=== PATIENT | male | born 1945 | race Caucasian/White ===

== ENCOUNTER 2024-09-13 18:33 | Inpatient (IN) | payer OTHER ==
[~2024-09-13] VITALS: Ht 172.7 cm; Wt 80.5 kg
[2024-09-13 19:11] LABS: BASOPHILS ABSOLUTE AUTO 0.03 K/mm3 (0.00-0.23); BASOPHILS PERCENT AUTO 0 % (0-2); EOSINOPHILS ABSOLUTE AUTO 0.22 K/mm3 (0.00-0.68); EOSINOPHILS PERCENT AUTO 3 % (0-6); Hematocrit 42.2 % (37.0-53.0); Hemoglobin 13.5 g/dL (13.5-17.5); IMMATURE GRAN ABSOLUTE AUTO 0.02 K/mm3 (0.00-0.10); IMMATURE GRAN PERCENT AUTO 0 % (0-1); LYMPHOCYTES ABSOLUTE AUTO 0.84 K/mm3 (0.84-5.20); LYMPHOCYTES PERCENT AUTO 12 % (21-46); MONOCYTES ABSOLUTE AUTO 0.58 K/mm3 (0.16-1.47); MONOCYTES PERCENT AUTO 8 % (4-13); Mean Corpuscular HGB 30.1 pg (26.0-34.0); Mean Corpuscular Volume 94 fL (80-100); NEUTROPHILS ABSOLUTE AUTO 5.35 K/mm3 (1.96-9.15); NEUTROPHILS PERCENT AUTO 76 % (41-73); Platelet Count 120 K/mm3 (150-400); RDW Coefficient Variation 16.3 % (11.7-14.2); Red Blood Cell Count 4.49 M/mm3 (4.30-5.90); White Blood Cell Count 7.04 K/mm3 (4.00-11.30)
[2024-09-13] MEDS ORDERED: ELIQUIS5 M2 PO ×2 (19:11)
[2024-09-13] MEDS ORDERED: ALLO300 PO ×2 (19:11)
[2024-09-13] MEDS ORDERED: ATOR80 PO ×2 (19:11)
[2024-09-13] MEDS ORDERED: Calcium Carbon500 MG PO ×2 (19:12)
[2024-09-13] MEDS ORDERED: VITAMIN D350 MC3 PO ×2 (19:12)
[2024-09-13] MEDS ORDERED: JARDIANCE25 MG PO ×2 (19:13)
[2024-09-13] MEDS ORDERED: DULO60 PO ×2 (19:13)
[2024-09-13] MEDS ORDERED: DULO30 PO ×2 (19:13)
[2024-09-13] MEDS ORDERED: ERGO50000 PO ×2 (19:14)
[2024-09-13] MEDS ORDERED: METF500C PO ×2 (19:14)
[2024-09-13] MEDS ORDERED: MIRT15 PO ×2 (19:14)
[2024-09-13] MEDS ORDERED: TOPROL XL50 M1 PO ×2 (19:14)
[2024-09-13] MEDS ORDERED: OMEP20ER PO ×2 (19:15)
[2024-09-13] MEDS ORDERED: NICODERM CQ1 EA24 TD ×2 (19:15)
[2024-09-13] MEDS ORDERED: POTCHL20ER PO ×2 (19:15)
[2024-09-13] MEDS ORDERED: PREG150 PO ×2 (19:15)
[2024-09-13] MEDS ORDERED: ENTRESTO 24 MG1 EACH PO (19:16)
[2024-09-13] MEDS ORDERED: TAMS.4ER PO ×2 (19:16)
[2024-09-13] MEDS ORDERED: TORSE20 PO ×2 (19:17)
[2024-09-13 19:20] LABS: Base Excess Venous -0.8 mmol/L; Bicarbonate Venous 23.7 mmol/L (24.0-30.0); PCO2 Venous 38.8 mmHg (38-42)
[2024-09-13 19:31] LABS: CORONAVIRUS COVID-19 AG Negative (NEGATIVE); INFLUENZA A AG Negative (NEGATIVE); INFLUENZA B AG Negative (NEGATIVE)
[2024-09-13 19:33] LABS: Albumin, Blood 2.8 g/dL (3.4-5.0); Albumin/Globulin Ratio 0.8 (0.8-1.8); Bilirubin, Total 0.5 mg/dL (0.1-1.0); Calcium, Blood 8.2 mg/dL (8.5-10.1); Creatinine, Blood 1.09 mg/dL (0.60-1.20); Globulin, Blood 3.6 g/dL (2.2-4.0); Potassium, Blood 4.6 mmol/L (3.5-5.5); Total Protein, Blood 6.4 g/dL (6.4-8.2)
[2024-09-13] MEDS ORDERED: Furosemide 10 MG/ML 10ML Vial IV ONE (19:55)
[2024-09-13] MEDS ORDERED: FLU VACC TS2024-25(6MOS UP)/PF 45 MCG/0.5 ML SYRINGE IM ONE (21:50)
[2024-09-13] MEDS ORDERED: Insulin Glargine-Yfgn 100 Unit/mL 3 ML SYR SC SCH (23:00)
[2024-09-13] MEDS ORDERED: Midodrine 5 MG Tab PO SCH (23:00)
[2024-09-14] VITALS (21 sets, daily range): BP systolic 81–142; BP diastolic 53–98
[2024-09-14 04:04] LABS: BASOPHILS ABSOLUTE AUTO 0.02 K/mm3 (0.00-0.23); BASOPHILS PERCENT AUTO 1 % (0-2); EOSINOPHILS ABSOLUTE AUTO 0.18 K/mm3 (0.00-0.68); EOSINOPHILS PERCENT AUTO 5 % (0-6); Hematocrit 38.7 % (37.0-53.0); Hemoglobin 12.3 g/dL (13.5-17.5); IMMATURE GRAN ABSOLUTE AUTO 0.01 K/mm3 (0.00-0.10); IMMATURE GRAN PERCENT AUTO 0 % (0-1); LYMPHOCYTES ABSOLUTE AUTO 0.87 K/mm3 (0.84-5.20); LYMPHOCYTES PERCENT AUTO 22 % (21-46); MONOCYTES PERCENT AUTO 12 % (4-13); Mean Corpuscular HGB 29.8 pg (26.0-34.0); Mean Corpuscular HGB Conc 31.8 g/dL (31.5-36.5); Mean Corpuscular Volume 94 fL (80-100); NEUTROPHILS ABSOLUTE AUTO 2.46 K/mm3 (1.96-9.15); NEUTROPHILS PERCENT AUTO 61 % (41-73); Platelet Count 99 K/mm3 (150-400); RDW Coefficient Variation 16.3 % (11.7-14.2); RDW Standard Deviation 56.7 fL (35.1-46.3); Red Blood Cell Count 4.13 M/mm3 (4.30-5.90); White Blood Cell Count 4.04 K/mm3 (4.00-11.30)
[2024-09-14 04:09] LABS: Mean Platelet Volume 13.3 fL (9.1-12.4)
[2024-09-14 04:23] LABS: Albumin, Blood 2.5 g/dL (3.4-5.0); Albumin/Globulin Ratio 0.8 (0.8-1.8); Bilirubin, Total 0.5 mg/dL (0.1-1.0); Bun/Creatinine Ratio 42.7 (12.0-20.0); Calcium, Blood 7.9 mg/dL (8.5-10.1); Creatinine, Blood 1.17 mg/dL (0.60-1.20); Globulin, Blood 3.2 g/dL (2.2-4.0); Potassium, Blood 3.5 mmol/L (3.5-5.5); Total Protein, Blood 5.7 g/dL (6.4-8.2)
[2024-09-14] MEDS ORDERED: Omeprazole 20 MG CapCR PO SCH (06:00)
--- NOTE | 2024-09-14 06:37 | NUR ---
PT ARRIVED FROM ED BY STRETCHER. TRANSFERED TO BED WITH SLIDE SHEET. PT AOX4, COOPERATIVE, ABLE TO ANSWER ALL QUESTIONS. PT IS IVSL AND ON 2L NC. PT ON ROOM AIR AT BASELINE. NO C/O CP OR DYSPNEA AT THIS TIME. PT HEART RHYTHM/RATE IS AFIB CONTROLLED VENTRICULAR RATE. VITAL SIGNS STABLE, BP SLIGHTLY SOFT 90s/60s. PT ASYMPTOMATIC WITH LOWERED BP. PUREWICK IN PLACE PT DIURESING WELL THROUGHOUT THE SHIFT. CALL LIGHT AND BEDSIDE TABLE IN REACH, BED IN LOWEST POSITION WITH BRAKES ON.
[2024-09-14] MEDS ORDERED: Insulin Human Lispro 100 Units/ML 3ML Syringe SC SCH (07:30)
[2024-09-14] MEDS ORDERED: Allopurinol 100 MG Tab PO SCH (09:00)
[2024-09-14] MEDS ORDERED: DULoxetine HCL 60 MG Capsule DR PO SCH (09:00)
[2024-09-14] MEDS ORDERED: Atorvastatin 40 MG Tab PO SCH (09:00)
[2024-09-14] MEDS ORDERED: Nicotine 7 MG PATCH TOP SCH (09:00)
[2024-09-14] MEDS ORDERED: Potassium Chloride 20 MEQ TabCR PO SCH ×3 (09:00→15:00)
[2024-09-14] MEDS ORDERED: Empagliflozin 25 MG TAB PO SCH (09:00)
[2024-09-14] MEDS ORDERED: Furosemide 10 MG/ML 4ML Vial IV SCH (09:00)
[2024-09-14] MEDS ORDERED: Pregabalin 75 MG Cap PO SCH (09:00)
[2024-09-14] MEDS ORDERED: Sacubitril/Valsartan 97 mg-103 mg Tab PO SCH (09:00)
[2024-09-14] MEDS ORDERED: Apixaban 5 MG Tab PO SCH ×2 (09:00→21:00)
[2024-09-14] MEDS ORDERED: Tamsulosin HCl 0.4 MG Cap PO SCH (09:00)
[2024-09-14] MEDS ORDERED: Calcium Carbonate 500 MG Tab Chew PO SCH (09:00)
[2024-09-14] MEDS ORDERED: Potassium Chloride 40 MEQ in NS 250 ML IV ONE (11:25)
[2024-09-14 12:24] LABS: Magnesium, Blood 1.9 mg/dL (1.6-2.4)
[2024-09-14 12:31] LABS: Phosphorus, Blood 3.1 mg/dL (2.5-4.9); Thyroid Stimulating Hormone 2.02 uIU/mL (0.360-4.800)
[2024-09-14] MEDS ORDERED: NS 250 ML IV PRN (13:10)
--- NOTE | 2024-09-14 16:48 | NUR ---
SHIFT SUMMARY THE PT IS A&OX4, BUT CAN BE IRRITABLE AT TIMES. 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 ON TELE HE IS AFIB 70'S-100'S. BP SOFT AND IS ON MIDODRINE TO HELP. HOSP TEAM AND CARDIOLOGY AWARE. HE WAS TITRAITED TO RA AND SP02 >93%. HE WAS PLACED ON 1L NC D/T SOB WITH ACTIVITY. THE PT STATES "I HATE FEELING THIS WAY" "I HATE FEELING SICK". SYMPTOMS WORSE AFTER ANY ACITIVTY. HE HAS A MALE PURIWCK INTACT W/ ADEQUET YELLOW OUTPUT. BOWEL MOVEMENT THIS SHIFT. CARDIOLOGY CONSULTED AFTER ECHO RESULTS. A FEW HOURS AFTER SPEAKING WITH CARDIOLOGY, THE PT STATED HE WOULD LIKE A SECOND AND THIRD OPINION OF HIS HEART FROM HIS CERTIFIED ACTIVITIES DIRECTOR AT THE [facility] IN [place]. THE PT STATES HE IS GOING TO [place] AT THE END OF THE MONTH AND WHEN HE IS UP THERE HE WILL CALL HIS CERTIFIED ACTIVITIES DIRECTOR TO MAKE AND APT. THIS RN DISCUSSED THE RISK OF WAITING TO SEE THE CERTIFIED ACTIVITIES DIRECTOR AND THE PT REPLIED WITH "I NEED YOU TO UNDERSTAND, IF I , I DO NOT CARE". THIS WAS DISCUSSED WITH HOSP TEAM, [employer], AND PALLIATIVE CARE.
[2024-09-14] MEDS ORDERED: Potassium Chloride 20 MEQ TabCR PO ONE (18:00)
[2024-09-14] MEDS ORDERED: Metoclopramide HCl 5MG / ML 2ML Vial IV PRN (20:50)
[2024-09-14] MEDS ORDERED: Mirtazapine 15 MG Tab PO SCH (21:00)
[2024-09-14] MEDS ORDERED: Mag Sulfate 1 GM/D5% 100ML 100 ML IV STA (21:57)
[2024-09-14] MEDS ORDERED: Metoprolol Tartrate 5 ML IV ONE (21:59)
[2024-09-14] MEDS ORDERED: Metoprolol Tartrate 1 MG/ML 5 ML VIAL IV ONE (22:05)
--- NOTE | 2024-09-14 22:50 | NUR ---
UPDATE PT'S HR NOTED TO BE RANGING 110-130'S AT SHIFT CHANGE. ABOUT 2129, HR INCREASED TO THE 130-150'S. DR. NINO NOTIFIED WITH MD TO PUT IN ORDERS. ABOUT 20 MINUTES LATER HR NOTED TO BE RANGING 150-170'S WITH INTERMITTENT JUMPS INTO THE 180'S. DR. BOGGS NOTIFIED WITH ORDERS TO GIVE 2.5MG LOPRESSOR IV, 1GRAM OF MAG, AND TO START AMIO BOLUS AND THEN AMIO gtt. IV LOPRESSOR PUSH GIVEN WITH MINMAL EFFECT ON HR WHILE WAITNG FOR AMIO gtt FROM PHARMACY. SBP DECREASED TO 80'S WITH HR RANGING 160-170'S WITH AN INTERMITTENT JUMP TO 200'S. PT ENDORSED INCREASED SOB WELL FEELING OF HIS HEART RACING. AMIO BOLUS AND gtt ARRIVED AND WAS IMMEDIATELY STARTED. PT RESONDED WELL TO BOLUS AND gtt WITH HR DECREASING TO 110-130'S. SBP ALSO INCREASED TO 100-110'S. PT ENDORSES IMPROVEMENT TO SOB WELL OVERALL MALASIE. DR. BOGGS AND DR. NINO UPDATED ON PT WITH ADDITIONAL ORDERS FOR ANOTHER AMIO BOLUS AND TO RESUME gtt AFTER IF HR MAINTAINS >130'S AND OR BP DROPS AGAIN. DR. ROBISON UPDATED ON PT'S CHANGE OF CONDITION WITH DIRECTIONS TO CONTINUE WITH CURRENT PLAN OF CARE.
[2024-09-14] MEDS ORDERED: LORazepam 0.5 MG Tab PO PRN (23:45)
[2024-09-15] VITALS (35 sets, daily range): BP systolic 81–123; BP diastolic 58–89
[2024-09-15 05:27] LABS: CHOL/HDL RATIO 1.9; Cholesterol 74 mg/dL (50-200); HDL Cholesterol 38 mg/dL (>39); LDL/HDL RATIO 0.5; Low Density Lipoprotein Chol 21 mg/dL (0-110); Triglycerides 77 mg/dL (30-160); Very Low Density Lipoprot Chol 15 mg/dL (6-32)
[2024-09-15 06:54] LABS: BASOPHILS ABSOLUTE AUTO 0.04 K/mm3 (0.00-0.23); BASOPHILS PERCENT AUTO 1 % (0-2); EOSINOPHILS ABSOLUTE AUTO 0.08 K/mm3 (0.00-0.68); EOSINOPHILS PERCENT AUTO 1 % (0-6); Hematocrit 48.6 % (37.0-53.0); Hemoglobin 14.7 g/dL (13.5-17.5); IMMATURE GRAN ABSOLUTE AUTO 0.03 K/mm3 (0.00-0.10); IMMATURE GRAN PERCENT AUTO 0 % (0-1); LYMPHOCYTES ABSOLUTE AUTO 1.07 K/mm3 (0.84-5.20); LYMPHOCYTES PERCENT AUTO 14 % (21-46); MONOCYTES ABSOLUTE AUTO 0.86 K/mm3 (0.16-1.47); MONOCYTES PERCENT AUTO 11 % (4-13); Mean Corpuscular HGB Conc 30.2 g/dL (31.5-36.5); Mean Platelet Volume 12.8 fL (9.1-12.4); NEUTROPHILS ABSOLUTE AUTO 5.55 K/mm3 (1.96-9.15); NEUTROPHILS PERCENT AUTO 73 % (41-73); Platelet Count 134 K/mm3 (150-400); RDW Coefficient Variation 16.7 % (11.7-14.2); RDW Standard Deviation 61.3 fL (35.1-46.3); White Blood Cell Count 7.63 K/mm3 (4.00-11.30)
[2024-09-15] MEDS ORDERED: Amiodarone HCl 200 MG Tab PO SCH (07:00)
[2024-09-15 07:01] LABS: Mean Corpuscular Volume 99 fL (80-100)
--- NOTE | 2024-09-15 07:19 | NUR ---
PT HAD EVENTFUL SHIFT LAST NIGHT. PT STARTED SHIFT AFIB WITH RATE 100-110s NO C/O DYSPNEA OR CP. PT HAD EPISODE OF NAUESEA WITH EMESIS WHICH APPEARED TO BE MUCUS PT WAS SWALLOWING FROM COUGH. PT WAS MEDICATED WITH 10MG REGLAN IVX1 WITH GOOD RESULTS. PT HAVING SOFT BP BUT DID IMPROVE TOWARD THE END OF SHIFT. PT HEART RATE TRENDED UPWARDS TO REACH 180s REMAINING IN AFIB, PHYSICIANS NOTIFIED AND PT MEDICATED WITH METOPROLOL IV 2.5MG X1 WITH NO SIGNIFICANT EFFECT ON HR/RHYTHM BUT DID DECREASE BP, PT HAVING SOFT BP AT BEGINNING OF SHIFT. PT THEN STARTED ON AMIODARONE WITH 150MG BOLUS X1 GIVEN THEN STARTED ON STANDARD AMIODARONE INFUSION. HR/RHYTHM STILL REMAINED AFIB SUSTAINED 130s AND PT WAS GIVEN 150MG BOLUS X1 FOR TOTAL OF [id number] BOLUS. LAST BOLUS IMPROVED HR SIGNIFICANTLY AND PT DECREASED BACK TO 110-120s. PT DID RECEIVE ATIVAN 0.5MG PO X1 FOR ANXIETY WHICH DID NOT APPEAR TO HELP HEART RATE. FACIAL DROOP TO RIGHT SIDE APPEARED TO THIS RN TO WORSEN AND PHYSICIAN NOTIFIED, OTHER MOTOR ASSESSMENT REMAINED UNCHANGED FROM PREVIOUS. PT REPORTS RT DROOP AT BASELINE WHEN PHYSICIAN EXAMINED PT. PT MITTEN STITCHER EQUAL BUT WEAK, B/L LEGS EQUAL BUT WEAK, EYES PERRLA. PT ABLE TO ANSWER ORIENTATION QUESTIONS APPROPRIATELY BUT DOES APPEAR TO HAVE SLIGHT SLURRING TO WORDS. PUREWICK IN PLACE AND CONTINUES TO DRAIN WELL. LUNG SOUNDS REMAIN UNCHANGED IF NOT IMPROVED THROUGHOUT SHIFT, THOUGH PT CONTINUED TO STATE DYSPNEA THOUGH SPO2 REMAINED 95% OR GREATER ON 2-4L NC. PT WAS INCREASED FROM 2L TO 4L DURING TACHYCARDIC EPISODE. OXY MASK PLACED ON 4L AND PT REPORTS IMPROVED BREATHING. AMIODARONE INFUSION D/C'D THIS MORNING WHEN PO AMIODARONE GIVEN.
[2024-09-15 07:25] LABS: Albumin, Blood 2.7 g/dL (3.4-5.0); Albumin/Globulin Ratio 0.7 (0.8-1.8); Bilirubin, Total 0.7 mg/dL (0.1-1.0); Bun/Creatinine Ratio 34.2 (12.0-20.0); Calcium, Blood 8.1 mg/dL (8.5-10.1); Creatinine, Blood 1.46 mg/dL (0.60-1.20); Globulin, Blood 3.8 g/dL (2.2-4.0); Total Protein, Blood 6.5 g/dL (6.4-8.2)
[2024-09-15] MEDS ORDERED: Insulin Regular 100 UNIT/ML 10ML Vial IV ONE ×2 (07:55→10:15)
[2024-09-15] MEDS ORDERED: CALCIUM GLUC IN NACL, ISO-OSM 50 ML IV ONE (09:00)
[2024-09-15 09:34] LABS: Base Excess Venous -3.1 mmol/L; Bicarbonate Venous 21.8 mmol/L (24.0-30.0); pH Blood Venous 7.34 (7.34-7.37)
--- NOTE | 2024-09-15 10:04 | NUR ---
CARE NOTE A CALL WAS PLACED TO DR. STEWART BY THIS RN AT APPROX. 1004 REGARDING BLOOD GLUCOSE OF 445.
[2024-09-15 13:39] LABS: Albumin, Blood 2.7 g/dL (3.4-5.0); Albumin/Globulin Ratio 0.8 (0.8-1.8); Bilirubin, Total 0.5 mg/dL (0.1-1.0); Bun/Creatinine Ratio 35.1 (12.0-20.0); Calcium, Blood 8.3 mg/dL (8.5-10.1); Creatinine, Blood 1.54 mg/dL (0.60-1.20); Globulin, Blood 3.4 g/dL (2.2-4.0); Potassium, Blood 4.5 mmol/L (3.5-5.5); Total Protein, Blood 6.1 g/dL (6.4-8.2)
[2024-09-15] MEDS ORDERED: Digoxin 0.25 MG/ML 2ML Amp IV ONE (15:00)
[2024-09-15] MEDS ORDERED: Insulin Human Lispro 100 Units/ML 3ML Syringe SC SCH (16:30)
--- NOTE | 2024-09-15 17:26 | NUR ---
SHIFT SUMMARY PT IS ORIENTED X 4. HE WAS SOMNOLENT UNITL APPROX. 1500 BUT IS MORE ALERT NOW. PER PT REPORT HE DID NOT EXPERIENCE SLEEP LAST NIGHT THEREFORE STAFF ALLOWED PT TO HAVE PERIODS OF UNINTERRUPTED REST. BP STABLE W/ MAP OF 60-70'S, HR HAS BEEN AFIB 80-90'S PER TELE REPORT. SPO2 HAS BEEN MAINTAINED 95% VIA 2-4L NC. HE HAS DENIED FEELINGS OF CHEST PAIN/PRESSURE WELL FEELINGS OF NAUSEA/VOMITTING. IN BEGINNING OF SHIFT, PT REPORTED FEELING DYSPNEIC BUT THAT APPEARS MUCH IMPROVED. OCCASSIONAL NON-PRODUCTIVE COUGH NOTED. PT HAS BEEN BEDREST DURING SHIFT BUT REPORTS USING A WALKER AT BASELINE, HE DECLINED GETTING UP TO CHAIR W/ ASSISTANCE DURING SHIFT. HE HAS HAD VERY LITTLE PO INTAKE DURING SHIFT. PW DEVICE IS IN PLACE FOR URINARY OUTPUT. THIS RN PLACED MEPILEX DRESSING OVER COCCYX WELL BILATERAL HEEL PROTECTORS DURING SHIFT. CALL LIGHT IS W/IN REACH.
[2024-09-15] MEDS ORDERED: Insulin Glargine-Yfgn 100 Unit/mL 3 ML SYR SC SCH (21:00)
[2024-09-16] VITALS (9 sets, daily range): BP systolic 92–109; BP diastolic 50–62
[2024-09-16 04:42] LABS: Bun/Creatinine Ratio 37.7 (12.0-20.0); Calcium, Blood 8.2 mg/dL (8.5-10.1); Creatinine, Blood 1.3 mg/dL (0.60-1.20)
--- NOTE | 2024-09-16 06:26 | NUR ---
PT STABLE THROUGHOUT THE SHIFT. PT REPORTS FEELING "MUCH BETTER THAN LAST NIGHT." PT REMAINS IN AFIB WITH CONTROLLED VENTRICULAR RATE, BP OCCASIONALLY SOFT THOUGH IMPROVED WITH BP WNL PRESENT WELL. PT DID SLEEP FOR ALMOST THE ENTIRETY OF SHIFT BUT DID AWAKE EASILY AND REMAINED AOX4. PT WAS ABLE TO SWALLOW PILLS WHOLE WITH WATER W/O S/S ASPIRATION/CHOKING. PUREWICK IN PLACE AND PT DID HAVE GOOD URINARY OUTPUT. FULL LINEN CHANGE DONE D/T LEAKING PUREWICK. PT REPOSITIONED FREQUENTLY, REDNESS TO COCCYX REMAINS BLANCHABLE AND HEELS FLOATED WITH HEEL PADS ON B/L. PT ON 2L O2 WITH GOOD SPO2, NO C/O DYSPNEA OR CP. PT DID NOT HAVE A BM ON THIS SHIFT. CALL LIGHT AND BEDSIDE TABLE IN REACH, PT USES CALL LIGHT APPROPRIATELY WHEN AWAKE. BED IN LOWEST POSITION, BRAKES ON, UPPER SIDE RAILS UP FOR SAFETY.
[2024-09-16] MEDS ORDERED: Amiodarone HCl200 MG PO ×4 (11:51→11:52)
[2024-09-16] MEDS ORDERED: AMIODARONE HCL200 M1 PO ×2 (11:54)
[2024-09-16] MEDS ORDERED: MIDO5 PO ×2 (11:58)
[2024-09-16] MEDS ORDERED: Amiodarone HCl 200 MG Tab PO SCH (14:00)
--- NOTE | 2024-09-16 14:32 | NUR ---
DISCHARGE SUMMARY PT A&Ox3-4, CALLS AND COMMUNCIATES NEEDS APPROPRIATELY. BP STABLE, AFIB 70's, DENIES CP/PRESSURE. SpO2> 92% 1L VIA NC, DESATS TO 88% ON RA, DENIES SOB. DISCHARGE INSTRUCTIONS PROVIDED TO PT, IVS REMOVED. PT 1 ASSIST TO STAND AND TRANSFER TO WHEELCHAIR. PT TAKEN OUT BY TRANSPORTATION STAFF WITH ALL PT BELONINGS AT APPROXIMATELY 1430.
[2024-09-17] MEDS ORDERED: Amiodarone HCl 200 MG Tab PO SCH (09:00)
== END 2024-09-16 14:30 | DRG 291 ==
LOC: ER 18:33 → PCU 23:01
PROVIDERS: Family Medicine; Student in an Organized Health Care Education/Training Program; ADMIT Student in an Organized Health Care Education/Training Program
PROC: 3E033XZ Introduction of Vasopressor into Peripheral Vein, Percutaneous Approach (ICD-10-PCS; principal; 2024-09-13)
DX: I11.0 Hypertensive heart disease with heart failure (principal); I50.23 Acute on chronic systolic (congestive) heart failure; J96.01 Acute respiratory failure with hypoxia; N17.9 Acute kidney failure, unspecified; I48.91 Unspecified atrial fibrillation; E11.9 Type 2 diabetes mellitus without complications; Z66 Do not resuscitate; F17.210 Nicotine dependence, cigarettes, uncomplicated; F10.10 Alcohol abuse, uncomplicated; M10.9 Gout, unspecified; I95.9 Hypotension, unspecified; R29.810 Facial weakness; E87.5 Hyperkalemia; I42.9 Cardiomyopathy, unspecified; I35.0 Nonrheumatic aortic (valve) stenosis; Z86.73 Personal history of transient ischemic attack (TIA), and cerebral infarction without residual deficits; Z98.890 Other specified postprocedural states; Z79.899 Other long term (current) drug therapy; Z79.01 Long term (current) use of anticoagulants; Z79.84 Long term (current) use of oral hypoglycemic drugs; Z28.21 Immunization not carried out because of patient refusal
CPT/HCPCS: 36415; 71045; 80048; 80053; 80061; 82803; 82947; 83036; 83735; 83880; 84100; 84443; 84484; 85025; 87428-QW; 93005; 93010; 94762; 96374; 99285-25; A9270; C8929; J0282; J0612; J1160; J1815; J1940; J2765; J3475; J3480; J7050; J7060; Q9957

== ENCOUNTER 2024-09-21 11:00 | Observation (INO) | payer OTHER ==
[~2024-09-21] VITALS: Ht 172.7 cm; Wt 72.9 kg
[~2024-09-21 11:00] MED LIST: ALLO300 PO; AMIODARONE HCL200 M1 PO; ATOR80 PO; Amiodarone HCl200 MG PO; Calcium Carbon500 MG PO; DULO30 PO; DULO60 PO; ELIQUIS5 M2 PO; ENTRESTO 24 MG1 EACH PO; ERGO50000 PO; JARDIANCE25 MG PO; METF500C PO; MIDO5 PO; MIRT15 PO; NICODERM CQ1 EA24 TD; OMEP20ER PO; POTCHL20ER PO; PREG150 PO; TAMS.4ER PO; TOPROL XL50 M1 PO; TORSE20 PO; VITAMIN D350 MC3 PO
[2024-09-21 12:09] LABS: BASOPHILS ABSOLUTE AUTO 0.03 K/mm3 (0.00-0.23); BASOPHILS PERCENT AUTO 1 % (0-2); EOSINOPHILS ABSOLUTE AUTO 0.36 K/mm3 (0.00-0.68); EOSINOPHILS PERCENT AUTO 6 % (0-6); Hematocrit 41.9 % (37.0-53.0); Hemoglobin 13.2 g/dL (13.5-17.5); IMMATURE GRAN ABSOLUTE AUTO 0.02 K/mm3 (0.00-0.10); IMMATURE GRAN PERCENT AUTO 0 % (0-1); LYMPHOCYTES PERCENT AUTO 10 % (21-46); MONOCYTES ABSOLUTE AUTO 0.53 K/mm3 (0.16-1.47); MONOCYTES PERCENT AUTO 9 % (4-13); Mean Corpuscular HGB 29.2 pg (26.0-34.0); Mean Corpuscular HGB Conc 31.5 g/dL (31.5-36.5); Mean Corpuscular Volume 93 fL (80-100); Mean Platelet Volume 12.4 fL (9.1-12.4); NEUTROPHILS ABSOLUTE AUTO 4.64 K/mm3 (1.96-9.15); NEUTROPHILS PERCENT AUTO 75 % (41-73); Platelet Count 128 K/mm3 (150-400); RDW Standard Deviation 54.5 fL (35.1-46.3); Red Blood Cell Count 4.52 M/mm3 (4.30-5.90); White Blood Cell Count 6.18 K/mm3 (4.00-11.30)
[2024-09-21 12:35] LABS: Albumin, Blood 2.4 g/dL (3.4-5.0); Albumin/Globulin Ratio 0.6 (0.8-1.8); Bilirubin, Total 0.5 mg/dL (0.1-1.0); Bun/Creatinine Ratio 29.8 (12.0-20.0); Calcium, Blood 8.3 mg/dL (8.5-10.1); Creatinine, Blood 1.21 mg/dL (0.60-1.20); Globulin, Blood 3.7 g/dL (2.2-4.0); Potassium, Blood 4.7 mmol/L (3.5-5.5); Total Protein, Blood 6.1 g/dL (6.4-8.2)
[2024-09-21] MEDS ORDERED: FLU VACC TS2024-25(6MOS UP)/PF 45 MCG/0.5 ML SYRINGE IM SCH (14:45)
[2024-09-21 18:00] VITALS: BP 122/66
[2024-09-21] MEDS ORDERED: Midodrine 5 MG Tab PO SCH (18:00)
--- NOTE | 2024-09-21 18:00 | NUR ---
ADMIT: Patient arrived to PCU 15 via bed and was able to stand and transfer to the bed, he is weak and slow. He is alert and oriented x4. Denies pain at this time. He states he had a syncopal episode at the [facility] when he was turning in bed thus they sent him to the hospital. HR Irreg, he is in A-Fib in the 90s, blood pressure stable. LS DIM with some fine crackles noted, he is 88% on RA, he bumped up to 94% on 2L via NC. BT+, abd slightly distended he states he had a BM yesterday. He has a scab to his left knee and some purplish discoloration to his coccyx, this is blanchable. He also has an open area to his right buttock-mepilex placed and patient repositioned to his left side. He had a condom cath in place that was falling off when he arrived, this was removed and male purewick was palced. Medication Reconcilitaion complete. Patient denies other needs at this time. Call light in reach.
[2024-09-21 20:24] VITALS: BP 101/70
[2024-09-21] MEDS ORDERED: Sacubitril/Valsartan 49 MG/51 MG Tab PO SCH (21:00)
[2024-09-21] MEDS ORDERED: Calcium Carbonate 500 MG Tab Chew PO SCH (21:00)
[2024-09-21] MEDS ORDERED: N-Acetylcysteine 600 MG CAP PO SCH (21:00)
[2024-09-21] MEDS ORDERED: Mirtazapine 15 MG Tab PO SCH (21:00)
[2024-09-21] MEDS ORDERED: Pregabalin 75 MG Cap PO SCH (21:00)
[2024-09-21] MEDS ORDERED: Apixaban 5 MG Tab PO SCH (21:00)
--- NOTE | 2024-09-21 23:02 | NUR ---
ASSUMED CARE PT IS A&O X4; SPO2 >92% ON 2LNC; MAP >65. PT DENIES CP, SOB, AND NAUSEA AT THIS TIME. RESTING QUIETLY.
--- NOTE | 2024-09-22 00:56 | NUR ---
WOUND REDNESS/PURPLE ON COCCYX W/ OPEN AREA IN GLUTEAL FOLD. PICTURES TAKEN AND DR DE LA ROSA NOTIFIED.
[2024-09-22 04:25] VITALS: BP 103/65
[2024-09-22 05:06] LABS: Hematocrit 41.4 % (37.0-53.0); Mean Corpuscular HGB 28.9 pg (26.0-34.0); Mean Corpuscular HGB Conc 31.4 g/dL (31.5-36.5); Mean Corpuscular Volume 92 fL (80-100); Mean Platelet Volume 12.4 fL (9.1-12.4); Platelet Count 137 K/mm3 (150-400); RDW Standard Deviation 54.8 fL (35.1-46.3); White Blood Cell Count 5.64 K/mm3 (4.00-11.30)
[2024-09-22 05:51] LABS: Albumin, Blood 2.4 g/dL (3.4-5.0); Albumin/Globulin Ratio 0.7 (0.8-1.8); Bilirubin, Total 0.7 mg/dL (0.1-1.0); Bun/Creatinine Ratio 29.5 (12.0-20.0); Calcium, Blood 8.2 mg/dL (8.5-10.1); Creatinine, Blood 1.22 mg/dL (0.60-1.20); Globulin, Blood 3.5 g/dL (2.2-4.0); Magnesium, Blood 1.8 mg/dL (1.6-2.4); Phosphorus, Blood 2.8 mg/dL (2.5-4.9); Potassium, Blood 4.1 mmol/L (3.5-5.5); Total Protein, Blood 5.9 g/dL (6.4-8.2)
[2024-09-22] MEDS ORDERED: Omeprazole 20 MG CapCR PO SCH (06:00)
--- NOTE | 2024-09-22 06:51 | NUR ---
SHIFT SUMMARY NO ACUTE EVENTS OVERNIGHT. PT SLEPT T/O NIGHT..
[2024-09-22] MEDS ORDERED: Insulin Human Lispro 100 Units/ML 3ML Syringe SC SCH (07:30)
[2024-09-22] MEDS ORDERED: Magnesium Sulf 2 GM/Water 50ML 50 ML IV ONE (07:45)
[2024-09-22] MEDS ORDERED: DULoxetine HCL 30 MG Cap DR PO SCH (09:00)
[2024-09-22] MEDS ORDERED: Atorvastatin 40 MG Tab PO SCH (09:00)
[2024-09-22] MEDS ORDERED: DULoxetine HCL 60 MG Capsule DR PO SCH (09:00)
[2024-09-22] MEDS ORDERED: Allopurinol 100 MG Tab PO SCH (09:00)
[2024-09-22] MEDS ORDERED: Amiodarone HCl 200 MG Tab PO SCH (09:00)
[2024-09-22] MEDS ORDERED: Bumetanide 1 MG Tab PO SCH (09:00)
[2024-09-22] MEDS ORDERED: Tamsulosin HCl 0.4 MG Cap PO SCH (09:00)
[2024-09-22] MEDS ORDERED: Potassium Chloride 10 Meq Tablet SA PO SCH (09:00)
[2024-09-22] MEDS ORDERED: Enoxaparin 40 MG/0.4 ML SYR SC SCH (09:00)
[2024-09-22] MEDS ORDERED: Metoprolol Succinate 25 MG TABCR PO SCH (09:00)
[2024-09-22] MEDS ORDERED: Ergocalciferol 50000 Intn'l Units PO SCH (09:00)
[2024-09-22] MEDS ORDERED: Cholecalciferol 1000 Unit Tablet (=25MCG) PO SCH (09:00)
[2024-09-22] MEDS ORDERED: Empagliflozin 10 MG TAB PO SCH (09:00)
[2024-09-22] MEDS ORDERED: Nicotine 7 MG PATCH TOP SCH (09:00)
--- NOTE | 2024-09-22 09:00 | NUR ---
Initial assessment: Patient is awake lying in bed watching TV, he is alert and oriented x4. He reports 5/10 pain in his coccyx region, he does have a wound on his right buttock that is cleansed and barrier cream placed. HR Irreg, he is in A-Fib in the 90s to low 100s, he denies chest pain or SOB at this time. LS DIM T/O with some fine crackles in the right upper lobes. BT+, he has some firmness to his right ABD, patient denies tenderness with light palpation. PPP. He has some purplish discoloration to his coccyx and upper buttock, this is blanchable. He has an open area to his upper right buttock. VSS. AM meds given whole with chocolate pudding. He denies other needs at this time. Call light in reach.
[2024-09-22 10:02] VITALS: BP 117/71
[2024-09-22 12:42] VITALS: BP 119/87
[2024-09-22 14:19] VITALS: BP 119/87
[2024-09-22 15:28] VITALS: BP 119/87
[2024-09-22 15:47] VITALS: BP 104/85
--- NOTE | 2024-09-22 15:50 | NUR ---
TRANSFER TO THE [facility]: Dr. Taylor and the resident team along with the supervisor in charge have aranged for the patient to be transferred to the [facility] per patients request as this is where his residence and cardiology team is located. Report was given to Lesli MOE. Patient to be transferred when EMS arrives.
[2024-09-22] MEDS ORDERED: Arginine/Glutamine/Calcium Hmb 1 Packet PO SCH (21:00)
== END 2024-09-22 16:40 | disposition short-term general hospital (02) ==
LOC: ER 11:00 → ERHOLD 11:01 → PCU 11:01
PROVIDERS: Emergency Medicine; ADMIT Internal Medicine
DX: I13.0 Hypertensive heart and chronic kidney disease with heart failure and stage 1 through stage 4 chronic kidney disease, or unspecified chronic kidney disease (principal); I50.22 Chronic systolic (congestive) heart failure; E11.22 Type 2 diabetes mellitus with diabetic chronic kidney disease; N18.30 Chronic kidney disease, stage 3 unspecified; I42.9 Cardiomyopathy, unspecified; I35.0 Nonrheumatic aortic (valve) stenosis; I48.19 Other persistent atrial fibrillation; M10.9 Gout, unspecified; F17.200 Nicotine dependence, unspecified, uncomplicated; E78.5 Hyperlipidemia, unspecified; E11.42 Type 2 diabetes mellitus with diabetic polyneuropathy; K21.9 Gastro-esophageal reflux disease without esophagitis; N40.0 Benign prostatic hyperplasia without lower urinary tract symptoms; Z79.01 Long term (current) use of anticoagulants; Z79.84 Long term (current) use of oral hypoglycemic drugs; Z79.899 Other long term (current) drug therapy; Z86.73 Personal history of transient ischemic attack (TIA), and cerebral infarction without residual deficits
CPT/HCPCS: 36415; 71045; 71250; 74150; 76770; 80053; 82947; 83735; 83880; 84100; 84443; 84484; 85025; 85027; 93005; 93010; 94664; 94762; 96365; 96366; 99285-25; A9270; G0378; J3475